=== PATIENT | male | born 1945 | race Caucasian/White ===

== ENCOUNTER 2018-08-30 11:25 | Emergency (ER) | payer OTHER, MEDICARE ==
[2018-08-30] MEDS: IBUPROFEN 600 MG TAB PO (12:45)
== END 2018-08-30 13:02 | disposition home or self-care (01) ==
LOC: E/R 11:25
DX: S16.1XXA Strain of muscle, fascia and tendon at neck level, initial encounter (principal); J44.9 Chronic obstructive pulmonary disease, unspecified; F17.210 Nicotine dependence, cigarettes, uncomplicated; S39.012A Strain of muscle, fascia and tendon of lower back, initial encounter; V89.2XXA Person injured in unspecified motor-vehicle accident, traffic, initial encounter
CPT/HCPCS: 99282